=== PATIENT | female | born 1985 | race American Indian/Alaskan Native ===

== ENCOUNTER 2021-08-16 09:18 | Emergency (ER) | payer BC, MEDICAID ==
[2021-08-16 10:00] VITALS: BP 129/78
[2021-08-16] MEDS ORDERED: ONDANSETRON 4 MG/2 ML INJ IV ONE (13:06)
[2021-08-16] MEDS ORDERED: SODIUM CHLORIDE 0.9% 1000 ML 1,000 ML IV ONE (13:07)
[2021-08-16 13:35] LABS: Hematocrit 33.8 % (30.3-42.9); Hemoglobin 10.7 gm/dl (10.1-14.3); Mean Corpuscular HGB Conc 32 % (30-34); Mean Corpuscular Volume 83 fl (79-97); Platelet Count 368 K/mm3 (140-440); Red Blood Count 4.09 M/mm3 (3.65-5.03); Red Cell Distribution Width 16.2 % (13.2-15.2)
[2021-08-16 14:04] LABS: HCG Qualitative,Urine Negative (Negative)
[2021-08-16 14:07] LABS: Bilirubin,Urine NEG (Negative); Blood,Urine NEG (Negative); Color,Urine Yellow (Yellow); Mucus,Urine FEW /HPF; Protein,Urine <15 mg/dL mg/dL (Negative); Urobilinogen,Urine < 2.0 mg/dL (<2.0)
[2021-08-16 14:35] LABS: BUN/Creatinine Ratio 19; Blood Urea Nitrogen 15 mg/dL (7-17); Calcium 9.5 mg/dL (8.4-10.2)
[2021-08-16 14:37] LABS: Alanine Aminotransferase 10 units/L (7-56); Albumin 4.7 g/dL (3.9-5); Hemolysis Index 3
--- NOTE | 2021-08-16 15:04 | Emergency Department Report ---
- General Chief complaint: Weakness Stated complaint: POSS DEHYDRATION Time Seen by Provider: 08/16/21 12:52 Source: patient Mode of arrival: Ambulatory Limitations: No Limitations - History of Present Illness Initial comments: 35-year-old black female with no past medical history presents to the emergency department for evaluation of generalized weakness and fatigue. She states that she had a dental procedure and for the last 3 days she has been unable to eat. She states that she has been trying to drink fluids but has been nauseated and unable to drink either. She denies any active vomiting. She denies fever, abdominal pain, dysuria, and vaginal discharge. She denies any sick contacts at the house. She states that she feels like she felt when she was , had hyperemesis, and was diagnosed with dehydration. MD Complaint: generalized weakness, lack of energy -: Gradual, days(s) (3) Severity scale (0 -10): 0 Associated Symptoms: headaches, nausea/vomiting. denies: chest pain, dark stools, diaphoresis, dysuria, easy bruising, fever/chills, loss of appetite, myalgias, shortness of breath, syncope - Related Data Previous Rx's Medication Instructions Recorded Last Taken Type Cyclobenzaprine HCl [Flexeril 5 MG 5 mg PO TID #9 tab 01/07/18 Unknown Rx TAB] Allergies Allergy/AdvReac Type Severity Reaction Status Date / Time No Known Allergies Allergy Verified 01/07/18 08:08 ED Review of Systems ROS: Stated complaint: POSS DEHYDRATION Other details as noted in HPI Comment: All other systems reviewed and negative Constitutional: denies: chills, fever Eyes: denies: vision change ENT: denies: congestion Respiratory: denies: cough, shortness of breath, SOB with exertion, SOB at rest, stridor, wheezing Cardiovascular: denies: chest pain, palpitations, dyspnea on exertion Gastrointestinal: nausea. denies: abdominal pain, vomiting, diarrhea, hem atemesis, melena, hematochezia Genitourinary: denies: urgency, dysuria, frequency, hematuria, discharge Musculoskeletal: denies: back pain Skin: denies: rash, lesions Neurological: headache. denies: weakness, numbness, paresthesias, confusion, abnormal gait, vertigo ED Past Medical Hx - Social History Smoking Status: Never Smoker Substance Use Type: None - Medications Home Medications: Home Medications Medication Instructions Recorded Confirmed Last Taken Type Cyclobenzaprine HCl [Flexeril 5 MG 5 mg PO TID #9 tab 01/07/18 Unknown Rx TAB] ED Physical Exam - General Limitations: No Limitations General appearance: alert, in no apparent distress - Head Head exam: Present: atraumatic, normocephalic - Eye Eye exam: Present: normal appearance. Absent: conjunctival injection, periorbital swelling, periorbital tenderness - ENT ENT exam: Present: normal exam, normal orophraynx, mucous membranes moist - Neck Neck exam: Present: normal inspection, full ROM. Absent: tenderness, lymphadenopathy - Respiratory Respiratory exam: Present: normal lung sounds bilaterally. Absent: respiratory distress, wheezes, rales, rhonchi, stridor, chest wall tenderness - Cardiovascular Cardiovascular Exam: Present: regular rate, normal heart sounds - GI/Abdominal GI/Abdominal exam: Present: soft, normal bowel sounds. Absent: distended, tenderness, guarding, rebound, rigid - Extremities Exam Extremities exam: Present: normal inspection, normal capillary refill. Absent: tenderness, pedal edema, joint swelling, calf tenderness - Back Exam Back exam: Present: normal inspection. Absent: CVA tenderness (R), CVA tenderness (L), vertebral tenderness - Neurological Exam Neurological exam: Present: alert, oriented X3, normal gait - Psychiatric Psychiatric exam: Present: normal affect, normal mood - Skin Skin exam: Present: warm, dry, intact, normal color ED Course Vital Signs 08/16/21 09:58 Temperature 98 F Pulse Rate 72 Respiratory 18 Rate Blood Pressure 129/78 [Right] O2 Sat by Pulse 100 Oximetry - Reevaluation(s) Reevaluation #1: 08/16/21 15:03 Patient states that she feels much better after 1 L of NS. ED Medical Decision Making - Lab Data Result diagrams: 08/16/21 13:10 08/16/21 13:10 - Medical Decision Making 35-year-old black female with no past medical history presents to the emergency department for evaluation of generalized weakness and fatigue. She states that she had a dental procedure and for the last 3 days she has been unable to eat. She states that she has been trying to drink fluids but has been nauseated and unable to drink either. She denies any active vomiting. She denies fever, abdominal pain, dysuria, and vaginal discharge. She denies any sick contacts at the house. She states that she feels like she felt when she was , had hyperemesis, and was diagnosed with dehydration. No gross abnormalities noted on assessment, no abnormalities noted on labs, and urine negative for UTI and . Patient states that symptoms resolved af ter IV fluids, and she feels much better. Patient will be discharged home to follow-up with primary care provider if worsening symptoms. She is advised to return to the ER as needed. She verbalizes understanding of and agreement with plan of care. Critical care attestation.: If time is entered above; I have spent that time in minutes in the direct care of this critically ill patient, excluding procedure time. ED Disposition Clinical Impression: Weakness Disposition: 01 HOME / SELF CARE / HOMELESS Is pt being admited?: No Does the pt Need Aspirin: No Condition: Stable Instructions: Fatigue, Weakness Additional Instructions: Drink plenty of noncaffeinated fluids. Follow-up with primary care provider. Return to the emergency department as needed. Referrals: MONA SMART MD [Staff Physician] - 3-5 Days Forms: Work/School Release Form(ED) Time of Disposition: 15:04
== END 2021-08-16 15:13 | disposition home or self-care (01) ==
LOC: ED 09:18
DX: R53.1 Weakness (principal)
CPT/HCPCS: 36415; 80053; 81001; 81025; 85027; 96361; 96374; 99283; J2405; J7030